=== PATIENT | male | born 1985 | race Hispanic/Latino ===

== ENCOUNTER 2016-06-12 18:38 | Emergency (ER) | payer SELFPAY ==
--- NOTE | 2016-06-12 20:46 | Emergency Department Report ---
ED ENT HPI - General Chief complaint: Dental/Oral Stated complaint: TOOTH INFECTION Time Seen by Provider: 06/12/16 20:21 Source: patient Mode of arrival: Ambulatory Limitations: No Limitations - History of Present Illness MD complaint: tooth pain -: Gradual, week(s) 1 - Impacted ` Gepp tooth decay to gum line Quality: aching - Related Data Previous Rx's Medication Instructions Recorded Last Taken Type Ibuprofen [Motrin 600 MG tab] 600 mg PO Q8H PRN #30 tablet 02/22/16 Unknown Rx Sulfamethoxazole/Trimethoprim 1 each PO BID #20 tablet 02/22/16 Unknown Rx [Bactrim DS TAB] Amoxicillin [Amoxicillin TAB] 875 mg PO BID #20 tablet 06/12/16 Unknown Rx traMADol [Ultram 50 MG tab] 50 mg PO Q4HR PRN #15 tablet 06/12/16 Unknown Rx Allergies Allergy/AdvReac Type Severity Reaction Status Date / Time Penicillins Allergy Vomiting Verified 06/21/15 12:16 ED Dental HPI - General Chief complaint: Dental/Oral Stated complaint: TOOTH INFECTION Time Seen by Provider: 06/12/16 20:21 Source: patient Mode of arrival: Ambulatory Limitations: No Limitations - History of Present Illness MD complaint: tooth pain Severity: severe Quality: aching Consistency: constant Worsens with: chewing, movement, hot/cold liquids Context- Dental: history of dental caries, poor dental care - Related Data Previous Rx's Medication Instructions Recorded Last Taken Type Ibuprofen [Motrin 600 MG tab] 600 mg PO Q8H PRN #30 tablet 02/22/16 Unknown Rx Sulfamethoxazole/Trimethoprim 1 each PO BID #20 tablet 02/22/16 Unknown Rx [Bactrim DS TAB] Amoxicillin [Amoxicillin TAB] 875 mg PO BID #20 tablet 06/12/16 Unknown Rx traMADol [Ultram 50 MG tab] 50 mg PO Q4HR PRN #15 tablet 06/12/16 Unknown Rx Allergies Allergy/AdvReac Type Severity Reaction Status Date / Time Penicillins Allergy Vomiting Verified 06/21/15 12:16 ED Review of Systems ROS: Stated complaint: TOOTH INFECTION Other details as noted in HPI Constitutional: denies: chills, fever Eyes: denies: eye pain, eye discharge, vision change ENT: dental pain. denies: ear pain, throat pain Respiratory: denies: cough, shortness of breath, wheezing Cardiovascular: denies: chest pain, palpitations Endocrine: no symptoms reported Gastrointestinal: denies: abdominal pain, nausea, diarrhea Genitourinary: denies: urgency, dysuria Musculoskeletal: denies: back pain, joint swelling, arthralgia Skin: denies: rash, lesions Neurological: denies: headache, weakness, paresthesias Psychiatric: denies: anxiety, depression Hematological/Lymphatic: denies: easy bleeding, easy bruising ED Past Medical Hx - Past Medical History Previous Medical History?: No - Surgical History Past Surgical History?: Yes Additional Surgical History: PYLORIC STENOSIS SURGERY (CHILD ) - Social History Smoking Status: Current Every Day Smoker Substance Use Type: None - Medications Home Medications: Home Medications Medication Instructions Recorded Confirmed Last Taken Type Ibuprofen [Motrin 600 MG tab] 600 mg PO Q8H PRN #30 tablet 02/22/16 Unknown Rx Sulfamethoxazole/Trimethoprim 1 each PO BID #20 tablet 02/22/16 Unknown Rx [Bactrim DS TAB] Amoxicillin [Amoxicillin TAB] 875 mg PO BID #20 tablet 06/12/16 Unknown Rx traMADol [Ultram 50 MG tab] 50 mg PO Q4HR PRN #15 tablet 06/12/16 Unknown Rx ED Physical Exam - General Limitations: No Limitations General appearance: alert, in no apparent distress - Head Head exam: Present: atraumatic, normocephalic - Eye Eye exam: Present: normal appearance, PERRL, EOMI - Expanded ENT Exam Expanded Mouth exam: Absent: drooling, trismus, muffled voice, tongue normal Teeth exam: Present: dental caries, dental tenderness # 1 - Dental Tenderness (decay gumline) - Neck Neck exam: Present: normal inspection, full ROM. Absent: tenderness, meningismus, lymphadenopathy - Respiratory Respiratory exam: Present: normal lung sounds bilaterally. Absent: respiratory distress - Neurological Exam Neurological exam: Present: alert, oriented X3, CN II-XII intact - Skin Skin exam: Present: warm, dry, intact ED Course Vital Signs 06/12/16 18:53 Temperature 99.2 F Pulse Rate 68 Respiratory 22 Rate Blood Pressure 140/88 O2 Sat by Pulse 98 Oximetry Critical care attestation.: If time is entered above; I have spent that time in minutes in the direct care of this critically ill patient, excluding procedure time. ED Disposition Clinical Impression: Dental infection Disposition: DISCHARGED TO HOME OR SELFCARE Is pt being admited?: No Condition: Stable Instructions: Dental Caries (ED) Prescriptions: Amoxicillin [Amoxicillin TAB] 875 mg PO BID #20 tablet traMADol [Ultram 50 MG tab] 50 mg PO Q4HR PRN #15 tablet PRN Reason: Pain Referrals: PRIMARY CARE, [Primary Care Provider] - 3-5 Days [facility] [Outside] - 3-5 Days [facility] [Outside] - 3-5 Days Forms: Work/School Release Form(ED)
[2016-06-12] MEDS ORDERED: NORCO 5/325 PO ONE (20:47)
[2016-06-12 20:59] VITALS: BP 135/81
== END 2016-06-12 20:59 | disposition home or self-care (01) ==
LOC: ED 18:38
DX: K04.7 Periapical abscess without sinus (principal); F17.200 Nicotine dependence, unspecified, uncomplicated; Z88.0 Allergy status to penicillin
CPT/HCPCS: 99282